=== PATIENT | female | born 1980 | race American Indian/Alaskan Native ===

== ENCOUNTER 2018-08-02 09:35 | Day surgery (SDC) | payer OTHER ==
[2018-08-02 10:17] VITALS: BMI 32.9
[2018-08-02] MEDS ORDERED: Midazolam 2 MG/2 ML VIAL ONE (10:58)
[2018-08-02] MEDS ORDERED: Propofol 10 mg/ml Inj (20 ML) ONE (10:58)
--- NOTE | 2018-08-02 10:59 | CP.SDSHP ---
Same Day Surgery H & P - History Proposed Procedure: EGD Pre-Op Diagnosis: abdominal pain - Previous Medical/Surgical History Cardiac: Hypertension Endocrine/Metabolic: Obesity Comments: SLE - Allergies Allergies: Allergies No Known Allergies Allergy (Verified 08/02/18 10:17) - Physical Exam General Appearance: NAD Vital Signs: Vital Signs 08/02/18 10:00 Temperature 98.4 F Pulse Rate 83 Respiratory 18 Rate Blood Pressure 127/84 O2 Sat by Pulse 98 Oximetry Mental Status: Alert & Oriented x3 Neuro: WNL Heart: WNL Lungs: WNL GI: WNL - {Optional Preform as Required} Abdomen: WNL - Impression Pt. Evaluated Today:Candidate for Anesthesia & Procedure: Yes - Date & Time Date: 08/02/18 Time: 10:58 Short Stay Discharge - Short Stay Discharge Admitting Diagnosis/Reason for Visit: ABDOMINAL PAIN Disposition: HOME/ ROUTINE Referrals: Dillon Moore DO [Primary Care Provider] -
[2018-08-02 11:40] VITALS: TEMP 97.9; O2SAT 100
[2018-08-02 12:39] VITALS: PULSE 77
[2018-08-02 12:42] VITALS: BP 118/68; RESP 20
== END 2018-08-02 12:15 | disposition home or self-care (01) ==
LOC: C.ENDO 09:35
PROVIDERS: ATTEND Internal Medicine Gastroenterology
DX: K31.7 Polyp of stomach and duodenum (principal); K29.70 Gastritis, unspecified, without bleeding; E66.9 Obesity, unspecified; I10 Essential (primary) hypertension
CPT/HCPCS: 43239; 84703; 88305; J2001; J2250; J2704